=== PATIENT | female | born 1995 | race Caucasian/White ===

== ENCOUNTER → 2025-07-20 | Outpatient (CLI) | payer SELFPAY | END | disposition home or self-care (01) | PROVIDERS: PCP Student in an Organized Health Care Education/Training Program; Referring Provider Obstetrics & Gynecology; Visit Provider Obstetrics & Gynecology | DX: E11.69 Type 2 diabetes mellitus with other specified complication (principal); E88.9 Metabolic disorder, unspecified | CPT/HCPCS: 76499 ==